=== PATIENT | male | born 1970 | race Caucasian/White ===

== ENCOUNTER 2017-04-20 08:22 | Observation (INO) | payer SELFPAY ==
[~2017-04-20] VITALS: Ht 195.6 cm; Wt 108.9 kg
--- NOTE | ~2017-04-20 | OR ---
PATIENT'S NAME: KENDAL KELLER [facility] AGE: 46 Y [address] ROOM: [place] [address] LOCATION: [facility] ADMIT DATE: 04/20/2017 OR/Procedure Report DISCHARGE DATE: FAMILY PHYSICIAN: Pascale Arguelles MD ATTENDING PHYSICIAN: DARREN MENDOZA SURGEON: Darren Mendoza MD POST FORM REMOVER: Dr. Kurt Dodge, resident. DATE OF PROCEDURE: 04/20/2017 PREOPERATIVE DIAGNOSES: 1. Nasal fracture. 2. Nasoorbitoethmoid fracture. 3. Right orbital rim fracture. 4. Right maxillary buttress racture. POSTOPERATIVE DIAGNOSES: 1. Nasal fracture. 2. Nasoorbitoethmoid fracture. 3. Right orbital rim fracture. 4. Right maxillary buttressfracture. PROCEDURE PERFORMED: 1. Open reduction and internal fixation of the nasal fracture. 2. Open reduction and internal fixation of the TYSON fracture. 3. Open reduction and internal fixation of the right orbital rim fracture. 4. Open reduction and internal fixation of the right maxillary fracture. 5. Major nasal repair. SURGEON: Dr. Darren Mendoza. ANESTHESIA: General endotracheal anesthesia. BLOOD LOSS: 30 mL. SPECIMENS: None. FINDINGS: We used the [employer] midface plating system. The patient's nasal root and nasal bones were very comminuted. He did have some telecanthus. We pieced the nose back together using plates and wire. INDICATION: Mr. Keller presented following a facial trauma involving a cow striking a gate that then hit him in the face. He had multiple facial fractures and is here today for repair. PROCEDURE DETAILS: The patient was seen in the preoperative holding area. PATIENT'S NAME: KENDAL KELLER [facility] AGE: 46 Y [address] ROOM: [place] [address] LOCATION: [facility] ADMIT DATE: 04/20/2017 OR/Procedure Report DISCHARGE DATE: FAMILY PHYSICIAN: Pascale Arguelles MD ATTENDING PHYSICIAN: DARREN MENDOZA Informed written consent was obtained from the patient for the above open reduction and internal fixation. After full knowledge of the risks, benefits, and alternatives, the patient wished to proceed. The patient was taken to the operating room, placed on the operating room table. General endotracheal anesthesia was induced without any difficulty. A time-out was performed identifying the patient as well as the procedure to be performed. Preoperative antibiotics were given within 1 hour of making incision. All pressure points were padded and bilateral sequential compression stockings were placed. We designed a right subciliary incision as well as a left subciliary incision transitioning up on to the nasal sidewall, nasal dorsum for access to the medial canthal tendon. This premarked incision was infiltrated with 1% lidocaine with 1:100,000 parts epinephrine. The patient was then prepped and draped in the normal sterile fashion and corneal protectors were placed. We began on the patient's left side, making an incision through the left subciliary and left upper blepharoplasty incisions which were united just medial to the medial canthus and this was taken up as a single limb over the nasal sidewall and nasal dorsum. Dissection was carried through these incisions down to the periosteum and we did identify the medial canthal tendon. This was solid at its attachment to the lacrimal bone. On looking up onto the nasal bones, the nasal bones were extremely comminuted. We raised the periosteum off the nasal bones from left to right and also from superiorly to inferiorly. The nasal root was displaced as well. We were able to plate the nasal bones in the midline at the nasal root using a plate and screws. We also wired the left and right nasal bones together in the midline as these were . These were coming around on the right nasal side wall over the nasal bones. We encountered a type 1 TYSON fracture. The medial canthus was mobile on the right-hand side when manipulated. We elevated the periosteum off this type 1 TYSON and followed this out laterally over the right orbital rim. We then made our subtarsal incision on the right-hand side, carried this through the orbicularis and onto the orbital rim. Our incision extended up medially to join our nasal dorsum incision. From this access point, we began to dissect inferiorly over the maxilla and there is a fracture of the nasal maxillary buttress as part of the TYSON fracture. We were able to get this into reduction and plate the superior portion first, using plate and screws. We then plated the infraorbital rims using plates and screws and then the lower maxillary fracture at the alveolus using a 4-hole plate. Next, we went back up on to the nose and there were several comminuted pieces of the nose at the anterior portion of the bony nose. We secured these with a combination of wire as well as plates. With this, all fractures were reduced and properly secured. We then began closing our incision. We made sure to resuspend the midface to deep periosteum or to the plates that we had placed. We used a 3-0 PDS suture for suspending the midface. The remainder of the dermis was closed using 3-0 Vicryl suture in a deep buried fashion. We closed the subciliary incisions using 6-0 nylons. The nasal dorsum, we closed with 5- 0 nylon suture in a combination of interrupted and running fashion. Next we PATIENT'S NAME: KENDAL KELLER [facility] AGE: 46 Y [address] ROOM: [address] [id number] LOCATION: [facility] ADMIT DATE: 04/20/2017 OR/Procedure Report DISCHARGE DATE: FAMILY PHYSICIAN: Pascale Arguelles MD ATTENDING PHYSICIAN: DARREN MENDOZA placed Nasopore packing intranasally to provide support to the nasal bones from getting depressed again. We also placed a Owusu splint intranasally. Following this, we placed an Aquaplast splint over the external nose. The corneal protectors were removed and the eyes were copiously irrigated with balanced salt solution. This marked the conclusion of the procedure. All sponge and needle counts were correct x2. The patient was passed back to Anesthesia, where he was extubated without any difficulty and transported to the PACU in stable condition. I, Dr. Mendoza, was present and scrubbed for the entire procedure and I performed all briseno aspects of the procedure with Dr. Dodge. KURT DODGE MD-STUDENT FOR MD CRISTO TELLES/felice /[id number] d: 04/20/17 1832 t: 05/04/17 0721, OPERATIVE SUMMARY
[~2017-04-20 08:22] MED LIST: AMOXICILLIN500 MG PO; NORVASC2.5 MG PO; PERCOCET 5-3251 EACH PO
[2017-04-20 08:59] LABS: BASOPHIL % 0.5 %; EOSINOPHIL # 0.1 K/uL (0.0-0.5); EOSINOPHIL % 1.8 %; HEMOGLOBIN 15.5 g/dL (12.0-17.0); IMMATURE GRANULOCYTE % 0.3 %; LYMPHOCYTE # 2.2 K/uL (0.8-4.0); LYMPHOCYTE % 33.3 %; MCH 29.8 pg (27.0-34.0); MCHC 33.7 gm/dL (32.0-36.5); MCV 88.3 fl (83.0-98.0); MONOCYTE # 0.7 K/uL (0.0-1.0); MONOCYTE % 10.6 %; MPV 9.8 fl (9.4-12.4); NEUTROPHIL # (ANC) 3.5 K/uL (1.4-9.0); NEUTROPHIL % 53.5 %; NRBC % 0 /100WBC (0-0.00); PLATELET COUNT 289 K/uL (150-450); RBC 5.21 M/uL (4.00-6.00); RDW-CV 12.6 % (11.9-14.6); WBC 6.6 K/uL (4.0-11.0)
[2017-04-20 09:09] LABS: INR - (THERAPEUTIC) 0.96 (0.92-1.07); PROTIME 10.1 SECONDS (9.8-11.4)
[2017-04-20 09:18] LABS: ALBUMIN 3.8 gm/dL (3.5-5.0); CALCIUM 9.2 mg/dL (8.5-10.5); TOTAL BILIRUBIN 0.6 mg/dL (0.0-1.5); TOTAL PROTEIN 8.1 g/dL (6.0-8.4)
[2017-04-20 09:19] LABS: ANION GAP 11.5 (10.0-19.0); POTASSIUM 4.5 mMol/L (3.7-5.1)
[2017-04-20] MEDS ORDERED: PERCOCET 5-3251 EACH PO (17:14)
[2017-04-20] MEDS ORDERED: BACTRIM DS1 TAB PO (17:15)
[2017-04-21] MEDS ORDERED: COLACE100 MG PO (11:09)
[2017-04-21] MEDS ORDERED: BACITRACIN1 PKT TOP (11:09)
== END 2017-04-21 12:10 | disposition disaster alternative care site (69) ==
LOC: GMSU 08:22 → GSDC 08:22 → GMSU 08:23 → EDSEX 16:00 → GSDC 16:00 → GMSU 04-21 12:10
PROVIDERS: ADMIT Otolaryngology
PROC: 0NSR04Z Reposition Maxilla with Internal Fixation Device, Open Approach (ICD-10-PCS; principal; 2017-04-20)
PROC: 0NS Head and Facial Bones, Reposition (ICD-10-PCS; 2017-04-20)
PROC: 0NS Head and Facial Bones, Reposition (ICD-10-PCS; 2017-04-20)
PROC: 0NSB04Z Reposition Nasal Bone with Internal Fixation Device, Open Approach (ICD-10-PCS; 2017-04-20)
PROC: 0NSP04Z Reposition Right Orbit with Internal Fixation Device, Open Approach (ICD-10-PCS; 2017-04-20)
PROC: 0NSB04Z Reposition Nasal Bone with Internal Fixation Device, Open Approach (ICD-10-PCS; 2017-04-20)
DX: S02.2XXA Fracture of nasal bones, initial encounter for closed fracture (principal); S02.81XA Fracture of other specified skull and facial bones, right side, initial encounter for closed fracture; S02.40CA Maxillary fracture, right side, initial encounter for closed fracture; X58.XXXA Exposure to other specified factors, initial encounter; Y93.K9 Activity, other involving animal care; Z79.2 Long term (current) use of antibiotics; Z79.891 Long term (current) use of opiate analgesic; Z88.1 Allergy status to other antibiotic agents
CPT/HCPCS: A9270; C1713; G0378; J0690; J1100; J1170; J1885; J2001; J2270; J2405; J3010; J7120